=== PATIENT | female | born 1990 | race African-American/Black ===

== ENCOUNTER 2016-11-13 23:21 | Emergency (ER) | payer MEDICAID, OTHER ==
[~2016-11-13] VITALS: Ht 165.1 cm; Wt 63.0 kg
[2016-11-14 00:02] VITALS: BP 99/69
== END 2016-11-14 01:20 | disposition left against medical advice (07) ==
LOC: ER 23:21
DX: R10.30 Lower abdominal pain, unspecified (principal); R11.2 Nausea with vomiting, unspecified; F15.10 Other stimulant abuse, uncomplicated; F17.210 Nicotine dependence, cigarettes, uncomplicated; Z53.21 Procedure and treatment not carried out due to patient leaving prior to being seen by health care provider